=== PATIENT | male | born 1930 | race Caucasian/White ===

== ENCOUNTER → 2016-07-21 | Outpatient (CLI) | payer MEDICARE ==
[~2016-07-21] MED LIST: AMLO2.5T OR; ASPI81; BILBERRY EXTRACT; DIOV160T60; LANS30 PO; NIAC500; OCUVITE; OMEGA 3 FISH OIL; PIOG30 PO; SITA50 PO; TAB-TAB; TRIL135C PO; ZOCO40TA; [UNRECOGNIZED DRUG - OTHER]
[2016-07-21 09:50] LABS: AUTOMATED NEUTROPHIL # 4.7 TH/MM3 (1.8-7.7); BASOPHIL % 0.6 % (0.0-2.0); EOSINOPHIL # 0.1 TH/MM3 (0-0.4); EOSINOPHIL % 1.3 % (0.0-4.0); HEMO FLAGS DIFF FINAL; LYMPH % 21.1 % (9.0-44.0); LYMPHOCYTE # 1.5 TH/MM3 (1.0-4.8); MEAN CORPUSCULAR HEMOGLOBIN 30.7 PG (27.0-34.0); PLATELET COUNT 266 TH/MM3 (150-450); RED CELL DISTRIBUTION WIDTH 14.1 % (11.6-17.2)
[2016-07-21 12:57] LABS: APTT (PATIENT) 26.6 SEC (24.3-30.1); INTERNATIONAL NORMALIZED RATIO 1.1 RATIO
== END ==
LOC: OLAB 07:14
PROVIDERS: ATTEND Internal Medicine
DX: J90 Pleural effusion, not elsewhere classified (principal); E11.21 Type 2 diabetes mellitus with diabetic nephropathy
CPT/HCPCS: 36415; 82947; 83615; 84155; 85025; 85610; 85730

== ENCOUNTER 2016-07-27 09:53 | Day surgery (SDC) | payer MEDICARE ==
--- NOTE | 2016-07-26 15:58 | MB ---
cc: SUSAN ZAZUETA M.D., R. STEVEN M.D. SICKINGER, BARTON G. DO DATE OF CONSULTATION 07/17/2016 HISTORY Mr. Manrique is an 86-year-old white male who, over the course of the last 4-6 weeks, has noticed progressive dyspnea on exertion and then developed within the last few weeks orthopnea and PND. He was seen by his caterpillar operator, Dr. Staples, and noted to be hypertensive and edematous. His medicines were adjusted and he was begun on Lasix. He was told to monitor his weight. It really has not changed; he is up about 5 pounds over the last several months. The patient was a former smoker of 40 pack-years. He quit smoking in 1996 completely. No previous pulmonary diagnosis, no known history of COPD or emphysema. No history of pneumonia. He has had no cough, congestion, no chest pain, no hemoptysis. He did develop increasing lower extremity edema as the shortness of breath developed. He had an echocardiogram; we do not have that result and he is scheduled for a nuclear stress test based on his history that is next week. PAST MEDICAL HISTORY 1. Hypertension. 2. Type 2 diabetes. 3. Intermittent reflux disease that has currently been asymptomatic. He uses Nexium as needed. 4. He has had no significant prior surgeries. 5. 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 ALLERGIES None known. MEDICATIONS Reviewed and recorded in his chart. FAMILY HISTORY Father of a stroke. Mother of heart failure. Lost a brother to polio and pancreatic cancer as an adult. One sister of heart disease. Two children in good health. SOCIAL HISTORY , living with his of 56 years. Originally from [place], moved here years ago with [employer] and was involved in quality control head. Does not drink alcohol much. No animal exposures. REVIEW OF SYSTEMS Weight is up as noted. No visual complaints. No anginal chest pain. No current reflux symptoms. Otherwise, as noted above. PHYSICAL EXAMINATION VITAL SIGNS: 112/56, pulse 65, temperature is 98, respiratory rate 18, saturation 92% on room air. HEENT: Sclerae anicteric. Pharynx is clear. NECK: Neck veins are flat. No adenopathy in the neck or supraclavicular region. RESPIRATORY: Breath sounds are diminished, right greater than left. Dullness to percussion but no wheezes, no congestion or rales. HEART: Regular heart rhythm. Soft systolic murmur. No audible S3. ABDOMEN: Soft. EXTREMITIES: He has 2+ pretibial edema both legs. No calf tenderness. IMAGING STUDIES He has had a chest x-ray with small bilateral pleural effusions, a ventilation perfusion scan with low probability for pulmonary embolism. The CT scan done on July 06 which again reveals bilateral effusions, right greater than left, and some compression in the right infrahilar region. A mass cannot be excluded. DISCUSSION Mr. Manrique presents with increasing dyspnea that appears to be due to mild congestive heart failure with effusions and edema. Cardiology is following him and adjusting his medications. In addition to that, he has some changes in the right infrahilar region that are uncertain, could simply be compression but a mass cannot be excluded. In light of the prior smoking history, I have suggested a diagnostic and therapeutic thoracentesis which we are ranging with radiology. Based on those results, we will see if any further evaluation of that right infrahilar area is necessary. He will also follow up with his caterpillar operator and continue to treat the problems of heart-related dyspnea and edema. Further diagnostic and/or therapeutic intervention will depend on these initial diagnostic studies. R. MD DA Salazar/CARMENCITA /10:40 AM /3:54 PM
[2016-07-27 10:32] VITALS: BP 139/79; PULSE 71; RESP 18; TEMP 97; O2SAT 94
[2016-07-27 11:27] VITALS: BP 131/87; PULSE 67; RESP 18; TEMP 97; O2SAT 93
--- NOTE | 2016-07-27 11:37 | RADRPT ---
EXAM DATE/TIME: 07/27/2016 11:20 [facility] COMPARISON: No previous studies available for comparison. INDICATIONS : Post right thoracentesis MEDICAL HISTORY : None. SURGICAL HISTORY : None. ENCOUNTER: Initial ACUITY: 1 day PAIN SCORE: 0/10 LOCATION: Right chest FINDINGS: Status post right thoracentesis. No evidence of pneumothorax. Right lung appears to be clear and well -aerated. There is some mild atelectasis in the left lung base. Heart size is upper limits of normal. Bony structures are grossly intact. CONCLUSION: No pneumothorax. Kristopher Contreras MD on July 27, 2016 at 11:35 Board Certified Radiologist. This report was verified electronically.
[2016-07-27 11:42] VITALS: BP 138/71; PULSE 67; RESP 18; O2SAT 94
--- NOTE | 2016-07-27 12:22 | RADRPT ---
EXAM DATE/TIME: 07/27/2016 10:32 [facility] COMPARISON: No previous studies available for comparison. EXTERNAL COMPARISON: [facility], CT THORAX, W/O CONTRAST, Jul 06 2016. CHEST- PA & LAT, June 27, 2016. INDICATIONS : Right pleural effusion. MEDICAL HISTORY : Hypertension. Gastroesophageal reflux disease. Macular degeneration. Diabetes. SURGICAL HISTORY : Tonsillectomy. Left carpal tunnel surgery. ENCOUNTER: Initial ACUITY: 1 month PAIN SCORE: 0/10 LOCATION: Right chest FLUID: Total volume of 950 cc of clear, yellow fluid was removed. Fluid was sent to lab for ordered studies. Post procedure scanning reveals no hematoma or other complication. TECHNIQUE: 1. Ultrasound guidance for thoracentesis. 2. Thoracentesis. The risks, benefits, and alternatives to ultrasound guided thoracentesis were explained to the patien t in lay simple terms, including the risk of bleeding and infection. Written and verbal informed con sent was obtained. Appropriate area for thoracentesis was marked under ultrasound guidance with the patient in the uprig ht position. Overlying skin was prepped and draped in the usual sterile fashion and with local anest hetic, a dermatotomy was made with an 11 blade scalpel. A 6 [place] thoracentesis catheter was placed in the pleural space and fluid was removed. Catheter was then removed and a sterile dressing applie d. There were no immediate complications. The patient tolerated the procedure well and the left the ultrasound suite in stable condition. Chest radiograph is to be obtained. CONCLUSION: Uncomplicated ultrasound guided thoracentesis. Kristopher Contreras MD on July 27, 2016 at 12:20 Board Certified Radiologist. This report was verified electronically.
[2016-07-27 12:37] LABS: CHOLESTEROL, PLEURAL FLUID LESS THAN 50 MG/DL; GLUCOSE,PLEURAL FLUID 101 MG/DL; TOTAL PROTEIN,PLEURAL FLUID 1.9 GM/DL
[2016-07-27 13:07] LABS: PLEURAL FLUID LYMPHS 75 %
== END 2016-07-27 11:55 | disposition home or self-care (01) ==
LOC: HRAD 09:53 → HRIP 09:54 → HRAD 11:55
PROVIDERS: ATTEND Internal Medicine
DX: J90 Pleural effusion, not elsewhere classified (principal); I10 Essential (primary) hypertension; E11.9 Type 2 diabetes mellitus without complications; K21.9 Gastro-esophageal reflux disease without esophagitis; Z87.891 Personal history of nicotine dependence
CPT/HCPCS: 32555; 71010; 82465; 82945; 83615; 84157; 87015; 87070; 87116; 87205; 87206; 89051; C1729; 88112; 88305

== ENCOUNTER → 2016-08-23 | Outpatient (CLI) | payer MEDICARE ==
[2016-08-23 09:11] LABS: AUTOMATED NEUTROPHIL # 4.5 TH/MM3 (1.8-7.7); BASOPHIL # 0.1 TH/MM3 (0-0.2); BASOPHIL % 0.8 % (0.0-2.0); EOSINOPHIL # 0.1 TH/MM3 (0-0.4); EOSINOPHIL % 1.8 % (0.0-4.0); HEMATOCRIT 40.1 % (39.0-51.0); HEMO FLAGS DIFF FINAL; LYMPH % 27.5 % (9.0-44.0); LYMPHOCYTE # 2.2 TH/MM3 (1.0-4.8); MEAN CELL VOLUME 92.5 FL (80.0-100.0); MEAN CORPUSCULAR HEMOGLOBIN 30.3 PG (27.0-34.0); MEAN CORPUSCULAR HGB CONC 32.8 % (32.0-36.0); MONO % 12.3 % (0.0-8.0); NEUT % 57.6 % (16.0-70.0); PLATELET COUNT 229 TH/MM3 (150-450); RED BLOOD COUNT 4.33 MIL/MM3 (4.50-5.90); WHITE BLOOD COUNT 7.9 TH/MM3 (4.0-11.0)
[2016-08-23 13:09] LABS: ALKALINE PHOSPHATASE 101 U/L (45-117); ALT (GPT) 28 U/L (12-78); ANION GAP 8 MEQ/L (5-15); AST (GOT) 29 U/L (15-37); BICARBONATE 24.6 MEQ/L (21.0-32.0); BLOOD UREA NITROGEN 120 MG/DL (7-18); CHLORIDE 110 MEQ/L (98-107); GLOMERULAR FILTRATION RATE 16 ML/MIN (>89); GLUCOSE,FASTING 93 MG/DL (74-99); HDL CHOLESTEROL 37.1 MG/DL (40.0-60.0); LDL CHOLESTEROL 91 MG/DL (0-99); POTASSIUM 4.4 MEQ/L (3.5-5.1); SODIUM (NA) 143 MEQ/L (136-145); TOTAL BILIRUBIN ADULT 0.3 MG/DL (0.2-1.0)
[2016-08-23 13:14] LABS: MICRO ALBUMIN RANDOM URINE RAW 29.2 MG/L (0.0-30.0)
[2016-08-23 16:47] LABS: HEMOGLOBIN A1b 2.3 %; HEMOGLOBIN Ao 81.3 %; HEMOGLOBIN LA1C 2.4 %; HEMOGLOBIN P3 7.2 %
== END ==
LOC: OLAB 07:40
PROVIDERS: ATTEND Family Medicine
DX: E11.21 Type 2 diabetes mellitus with diabetic nephropathy (principal); N18.3 Chronic kidney disease, stage 3 (moderate); E78.5 Hyperlipidemia, unspecified
CPT/HCPCS: 36415; 80053; 80061; 82043; 82306; 83036; 85025

== ENCOUNTER → 2016-09-04 | Outpatient (CLI) | payer MEDICARE ==
[2016-09-04 13:42] LABS: BICARBONATE 24.7 MEQ/L (21.0-32.0); POTASSIUM 4.8 MEQ/L (3.5-5.1)
== END ==
LOC: OLAB 08:49
PROVIDERS: ATTEND Family Medicine
DX: N17.9 Acute kidney failure, unspecified (principal)
CPT/HCPCS: 36415; 80048

== ENCOUNTER → 2016-10-02 | Outpatient (CLI) | payer MEDICARE ==
[2016-10-02 12:35] LABS: POTASSIUM 4.8 MEQ/L (3.5-5.1)
== END ==
LOC: OLAB 08:29
PROVIDERS: ATTEND Family Medicine
DX: N18.4 Chronic kidney disease, stage 4 (severe) (principal)
CPT/HCPCS: 36415; 80048

== ENCOUNTER → 2016-11-10 | Outpatient (CLI) | payer MEDICARE ==
[2016-11-10 08:51] LABS: HEMATOCRIT 39.6 % (39.0-51.0); MEAN CELL VOLUME 92.6 FL (80.0-100.0); MEAN CORPUSCULAR HEMOGLOBIN 30.4 PG (27.0-34.0); MEAN CORPUSCULAR HGB CONC 32.8 % (32.0-36.0); PLATELET COUNT 210 TH/MM3 (150-450); RED BLOOD COUNT 4.28 MIL/MM3 (4.50-5.90); RED CELL DISTRIBUTION WIDTH 14.7 % (11.6-17.2); REVIEW FLAG FINAL; WHITE BLOOD COUNT 7.3 TH/MM3 (4.0-11.0)
[2016-11-10 09:35] LABS: BLOOD, URINE NEG (NEG); COMMENT (UR) CULT NOT INDICATED; CULTURE IF INDICATED CULT NOT INDICATED; GLUCOSE,URINE NEG (NEG); KETONE, URINE NEG (NEG); MUCUS URINE FEW /lpf (OCC); NITRITE,URINE NEG (NEG); URINE COLOR YELLOW (YELLW/STRAW)
[2016-11-10 10:12] LABS: ANION GAP 10 MEQ/L (5-15); BICARBONATE 22.3 MEQ/L (21.0-32.0); BLOOD UREA NITROGEN 79 MG/DL (7-18); CHLORIDE 112 MEQ/L (98-107); GLOMERULAR FILTRATION RATE 27 ML/MIN (>89); GLUCOSE,FASTING 116 MG/DL (74-99); HDL CHOLESTEROL 39.4 MG/DL (40.0-60.0); LDL CHOLESTEROL 101 MG/DL (0-99); POTASSIUM 4.6 MEQ/L (3.5-5.1); SODIUM (NA) 144 MEQ/L (136-145)
[2016-11-10 12:16] LABS: HEMOGLOBIN A1a 1.1 %; HEMOGLOBIN A1b 2.3 %; HEMOGLOBIN LA1C 2.8 %; HEMOGLOBIN P3 7.5 %
== END ==
LOC: OLAB 11-09 08:41
PROVIDERS: ATTEND Family Medicine
DX: E78.5 Hyperlipidemia, unspecified (principal); N18.3 Chronic kidney disease, stage 3 (moderate); E11.21 Type 2 diabetes mellitus with diabetic nephropathy; E11.22 Type 2 diabetes mellitus with diabetic chronic kidney disease
CPT/HCPCS: 36415; 80061; 80069; 81001; 82570; 83036; 83970; 84156; 85027

== ENCOUNTER → 2017-02-22 | Outpatient (CLI) | payer MEDICARE ==
[2017-02-22 09:05] LABS: AUTOMATED NEUTROPHIL # 4.6 TH/MM3 (1.8-7.7); BASOPHIL % 0.6 % (0.0-2.0); EOSINOPHIL # 0.4 TH/MM3 (0-0.4); HEMATOCRIT 42.2 % (39.0-51.0); HEMO FLAGS DIFF FINAL; LYMPH % 25.2 % (9.0-44.0); LYMPHOCYTE # 1.9 TH/MM3 (1.0-4.8); MEAN CELL VOLUME 95.3 FL (80.0-100.0); MEAN CORPUSCULAR HEMOGLOBIN 30.6 PG (27.0-34.0); MEAN CORPUSCULAR HGB CONC 32.1 % (32.0-36.0); MONO % 8.9 % (0.0-8.0); NEUT % 60.3 % (16.0-70.0); PLATELET COUNT 273 TH/MM3 (150-450); RED BLOOD COUNT 4.43 MIL/MM3 (4.50-5.90); RED CELL DISTRIBUTION WIDTH 12.8 % (11.6-17.2); WHITE BLOOD COUNT 7.6 TH/MM3 (4.0-11.0)
[2017-02-22 09:08] LABS: ANION GAP 7 MEQ/L (5-15); AST (GOT) 25 U/L (15-37); BICARBONATE 24.4 MEQ/L (21.0-32.0); BLOOD UREA NITROGEN 59 MG/DL (7-18); CHLORIDE 111 MEQ/L (98-107); GLOMERULAR FILTRATION RATE 35 ML/MIN (>89); GLUCOSE,FASTING 116 MG/DL (74-99); SODIUM (NA) 142 MEQ/L (136-145)
[2017-02-22 09:09] LABS: ALT (GPT) 26 U/L (12-78)
[2017-02-22 09:11] LABS: ALKALINE PHOSPHATASE 207 U/L (45-117); TOTAL BILIRUBIN ADULT 0.4 MG/DL (0.2-1.0)
[2017-02-22 16:29] LABS: HEMOGLOBIN A1a 1.1 %; HEMOGLOBIN A1b 2.2 %; HEMOGLOBIN Ao 81.4 %; HEMOGLOBIN LA1C 2.5 %; HEMOGLOBIN P3 7.4 %
== END ==
LOC: OLAB 07:01
PROVIDERS: ATTEND Family Medicine
DX: E11.21 Type 2 diabetes mellitus with diabetic nephropathy (principal); D64.9 Anemia, unspecified
CPT/HCPCS: 36415; 80053; 83036; 85025

== ENCOUNTER → 2017-06-04 | Outpatient (CLI) | payer MEDICARE ==
[2017-06-04 12:55] LABS: AUTOMATED NEUTROPHIL # 3.5 TH/MM3 (1.8-7.7); BASOPHIL % 0.7 % (0.0-2.0); EOSINOPHIL # 0.1 TH/MM3 (0-0.4); EOSINOPHIL % 2.2 % (0.0-4.0); HEMATOCRIT 42.4 % (39.0-51.0); HEMO FLAGS DIFF FINAL; LYMPH % 30.1 % (9.0-44.0); LYMPHOCYTE # 1.9 TH/MM3 (1.0-4.8); MEAN CELL VOLUME 99.7 FL (80.0-100.0); MEAN CORPUSCULAR HEMOGLOBIN 31.9 PG (27.0-34.0); MONO % 11.2 % (0.0-8.0); NEUT % 55.8 % (16.0-70.0); PLATELET COUNT 189 TH/MM3 (150-450); RED BLOOD COUNT 4.25 MIL/MM3 (4.50-5.90); RED CELL DISTRIBUTION WIDTH 15.2 % (11.6-17.2); WHITE BLOOD COUNT 6.3 TH/MM3 (4.0-11.0)
[2017-06-04 13:00] LABS: BLOOD, URINE NEG (NEG); COMMENT (UR) CULT NOT INDICATED; CULTURE IF INDICATED CULT NOT INDICATED; GLUCOSE,URINE NEG (NEG); HYALINE CAST, URINE 1 /lpf (RARE); KETONE, URINE NEG (NEG); NITRITE,URINE NEG (NEG); URINE COLOR LIGHT-YELLOW (YELLW/STRAW)
[2017-06-04 13:12] LABS: POTASSIUM 4.4 MEQ/L (3.5-5.1)
== END ==
LOC: OLAB 07:24
PROVIDERS: ATTEND Internal Medicine Nephrology
DX: N18.3 Chronic kidney disease, stage 3 (moderate) (principal)
CPT/HCPCS: 36415; 80069; 81001; 82570; 83970; 84156; 85025

== ENCOUNTER → 2017-06-06 | Outpatient (CLI) | payer MEDICARE ==
[2017-06-06 08:39] LABS: AUTOMATED NEUTROPHIL # 4.4 TH/MM3 (1.8-7.7); BASOPHIL % 0.6 % (0.0-2.0); EOSINOPHIL # 0.1 TH/MM3 (0-0.4); EOSINOPHIL % 1.7 % (0.0-4.0); HEMATOCRIT 41.5 % (39.0-51.0); HEMO FLAGS DIFF FINAL; LYMPH % 24.1 % (9.0-44.0); LYMPHOCYTE # 1.7 TH/MM3 (1.0-4.8); MEAN CELL VOLUME 99.2 FL (80.0-100.0); MEAN CORPUSCULAR HEMOGLOBIN 32.7 PG (27.0-34.0); MONO % 12.5 % (0.0-8.0); NEUT % 61.1 % (16.0-70.0); PLATELET COUNT 184 TH/MM3 (150-450); RED BLOOD COUNT 4.18 MIL/MM3 (4.50-5.90); WHITE BLOOD COUNT 7.2 TH/MM3 (4.0-11.0)
[2017-06-06 08:43] LABS: BLOOD, URINE NEG (NEG); GLUCOSE,URINE NEG (NEG); HYALINE CAST, URINE 4 /lpf (RARE); KETONE, URINE NEG (NEG); MUCUS URINE FEW /lpf (OCC); NITRITE,URINE NEG (NEG); URINE COLOR YELLOW (YELLW/STRAW)
[2017-06-06 08:57] LABS: COMMENT (UR) CULT NOT INDICATED; CULTURE IF INDICATED CULT NOT INDICATED
[2017-06-06 09:06] LABS: ANION GAP 7 MEQ/L (5-15); AST (GOT) 25 U/L (15-37); BICARBONATE 22.9 MEQ/L (21.0-32.0); BLOOD UREA NITROGEN 81 MG/DL (7-18); CHLORIDE 112 MEQ/L (98-107); GLOMERULAR FILTRATION RATE 27 ML/MIN (>89); GLUCOSE,FASTING 95 MG/DL (74-99); POTASSIUM 4.6 MEQ/L (3.5-5.1); SODIUM (NA) 142 MEQ/L (136-145)
[2017-06-06 09:07] LABS: ALT (GPT) 27 U/L (12-78)
[2017-06-06 09:09] LABS: ALKALINE PHOSPHATASE 217 U/L (45-117); HDL CHOLESTEROL 43.3 MG/DL (40.0-60.0); LDL CHOLESTEROL 78 MG/DL (0-99); TOTAL BILIRUBIN ADULT 0.5 MG/DL (0.2-1.0)
== END ==
LOC: OLAB 07:09
PROVIDERS: ATTEND Family Medicine
DX: E78.5 Hyperlipidemia, unspecified (principal); E11.21 Type 2 diabetes mellitus with diabetic nephropathy; I10 Essential (primary) hypertension
CPT/HCPCS: 36415; 80053; 80061; 81001; 85025

== ENCOUNTER → 2017-07-05 | Outpatient (CLI) | payer MEDICARE ==
[2017-07-05 09:20] LABS: ALBUMIN 3.5 GM/DL (3.4-5.0); BICARBONATE 22.4 MEQ/L (21.0-32.0); CREATININE 2.17 MG/DL (0.60-1.30); PHOSPHORUS 4.5 MG/DL (2.5-4.9)
== END ==
LOC: OLAB 07:35
PROVIDERS: ATTEND Physician Assistant
DX: N18.4 Chronic kidney disease, stage 4 (severe) (principal)
CPT/HCPCS: 36415; 80069

== ENCOUNTER → 2017-08-13 | Outpatient (CLI) | payer MEDICARE ==
[2017-08-13 13:06] LABS: ALBUMIN 3.7 GM/DL (3.4-5.0); BICARBONATE 22.9 MEQ/L (21.0-32.0); CALCIUM 9.1 MG/DL (8.5-10.1); CREATININE 2.08 MG/DL (0.60-1.30)
[2017-08-13 13:07] LABS: PHOSPHORUS 4.3 MG/DL (2.5-4.9)
== END ==
LOC: OLAB 07:14
PROVIDERS: ATTEND Internal Medicine Nephrology
DX: I10 Essential (primary) hypertension (principal); N25.81 Secondary hyperparathyroidism of renal origin
CPT/HCPCS: 36415; 80069

== ENCOUNTER → 2017-09-10 | Outpatient (CLI) | payer MEDICARE ==
[2017-09-10 11:24] LABS: AUTOMATED NEUTROPHIL # 4.2 TH/MM3 (1.8-7.7); BASOPHIL # 0.1 TH/MM3 (0-0.2); BASOPHIL % 0.7 % (0.0-2.0); EOSINOPHIL # 0.2 TH/MM3 (0-0.4); EOSINOPHIL % 2.2 % (0.0-4.0); HEMATOCRIT 42.9 % (39.0-51.0); HEMOGLOBIN 14.2 GM/DL (13.0-17.0); LYMPH % 26.7 % (9.0-44.0); LYMPHOCYTE # 1.9 TH/MM3 (1.0-4.8); MEAN CELL VOLUME 98.3 FL (80.0-100.0); MEAN CORPUSCULAR HEMOGLOBIN 32.4 PG (27.0-34.0); MONO % 10.5 % (0.0-8.0); MONOCYTE # 0.7 TH/MM3 (0-0.9); NEUT % 59.9 % (16.0-70.0); PLATELET COUNT 208 TH/MM3 (150-450); RED BLOOD COUNT 4.36 MIL/MM3 (4.50-5.90); RED CELL DISTRIBUTION WIDTH 14.5 % (11.6-17.2)
[2017-09-10 11:26] LABS: BILIRUBIN, URINE NEG (NEG); BLOOD, URINE NEG (NEG); GLUCOSE,URINE NEG (NEG); HYALINE CAST, URINE 15 /lpf (RARE); KETONE, URINE NEG (NEG); MUCUS URINE FEW /lpf (OCC); NITRITE,URINE NEG (NEG); URINE COLOR YELLOW (YELLW/STRAW); URINE LEUKOCYTE ESTERASE NEG (NEG)
[2017-09-10 11:33] LABS: ALBUMIN 3.7 GM/DL (3.4-5.0); CALCIUM 8.7 MG/DL (8.5-10.1); CREATININE 2.15 MG/DL (0.60-1.30)
[2017-09-10 11:35] LABS: PHOSPHORUS 4.4 MG/DL (2.5-4.9)
== END ==
LOC: OLAB 07:10
PROVIDERS: ATTEND Internal Medicine Nephrology
DX: I10 Essential (primary) hypertension (principal); N25.81 Secondary hyperparathyroidism of renal origin
CPT/HCPCS: 36415; 80069; 81001; 82570; 83970; 84156; 85025

== ENCOUNTER → 2017-11-13 | Outpatient (CLI) | payer MEDICARE ==
[2017-11-13 10:47] LABS: ALBUMIN 3.7 GM/DL (3.4-5.0); AST (GOT) 33 U/L (15-37); BLOOD UREA NITROGEN 66 MG/DL (7-18); CALCIUM 8.9 MG/DL (8.5-10.1); CHLORIDE 116 MEQ/L (98-107); CREATININE 2.04 MG/DL (0.60-1.30); GLOMERULAR FILTRATION RATE 31 ML/MIN (>89); GLUCOSE,FASTING 108 MG/DL (74-99); SODIUM (NA) 146 MEQ/L (136-145)
[2017-11-13 10:48] LABS: ALT (GPT) 38 U/L (12-78); CHOLESTEROL 142 MG/DL (120-200); TRIGLYCERIDES 93 MG/DL (42-150)
[2017-11-13 10:51] LABS: ALKALINE PHOSPHATASE 247 U/L (45-117); CHOLESTEROL/ HDL RATIO 3.55 RATIO; LDL CHOLESTEROL 83 MG/DL (0-99); TOTAL BILIRUBIN ADULT 0.5 MG/DL (0.2-1.0); TOTAL PROTEIN 7.2 GM/DL (6.4-8.2)
== END ==
LOC: OLAB 07:12
PROVIDERS: ATTEND Family Medicine
DX: E11.9 Type 2 diabetes mellitus without complications (principal)
CPT/HCPCS: 36415; 80053; 80061; 83036

== ENCOUNTER → 2017-12-19 | Outpatient (CLI) | payer MEDICARE ==
[2017-12-19 08:57] LABS: HEMATOCRIT 42.9 % (39.0-51.0); MEAN CELL VOLUME 97.9 FL (80.0-100.0); MEAN CORPUSCULAR HEMOGLOBIN 31.9 PG (27.0-34.0); MEAN CORPUSCULAR HGB CONC 32.6 % (32.0-36.0); MEAN PLATELET VOLUME 7.9 FL (7.0-11.0); PLATELET COUNT 196 TH/MM3 (150-450); RED BLOOD COUNT 4.38 MIL/MM3 (4.50-5.90); RED CELL DISTRIBUTION WIDTH 13.7 % (11.6-17.2); WHITE BLOOD COUNT 6.5 TH/MM3 (4.0-11.0)
[2017-12-19 10:20] LABS: ALBUMIN 3.7 GM/DL (3.4-5.0); BICARBONATE 20.5 MEQ/L (21.0-32.0); CALCIUM 8.9 MG/DL (8.5-10.1); CREATININE 2.18 MG/DL (0.60-1.30)
[2017-12-19 10:24] LABS: BILIRUBIN, URINE NEG (NEG); BLOOD, URINE NEG (NEG); GLUCOSE,URINE NEG (NEG); HYALINE CAST, URINE 3 /lpf (RARE); KETONE, URINE NEG (NEG); MUCUS URINE FEW /lpf (OCC); NITRITE,URINE NEG (NEG); PH, URINE 5.5 (5.0-8.5); URINE COLOR YELLOW (YELLW/STRAW); URINE LEUKOCYTE ESTERASE NEG (NEG)
== END ==
LOC: OLAB 07:17
PROVIDERS: ATTEND Physician Assistant
DX: N18.4 Chronic kidney disease, stage 4 (severe) (principal); E55.9 Vitamin D deficiency, unspecified
CPT/HCPCS: 36415; 80069; 81001; 82306; 82570; 83970; 84156; 85027